=== PATIENT | female | born 1995 | race Caucasian/White ===

== ENCOUNTER 2023-10-26 11:11 | Inpatient (IN) | payer BC ==
[~2023-10-26 11:11] MED LIST: CEPHALEXIN500 MG PO; IMODIUM MULTI-1 EACH PO; ORTHO EVRA PAT1 EACH; ZOFRAN ODT4 MG PO
[2023-10-26 11:41] LABS: HEMOGLOBIN 12.2 g/dL (12.0-18.0); MCHC 32.9 g/dl (30-36); RBC 4.68 M/ul (4.3-5.7)
[2023-10-26 11:54] LABS: CREATININE, RANDOM URINE 53.38 mg/dL (NOT ESTABLISHED); PROTEIN/CREATININE RATIO 0.29 mg/mg (0.010-0.107)
[2023-10-26 11:58] LABS: CREATININE, SERUM 0.65 mg/dL (0.55-1.02)
[2023-10-26] MEDS ORDERED: ACETAMINOPHEN 500 MG TAB PO ONE (12:45)
[2023-10-26] MEDS ORDERED: LACTATED RINGER'S 1,000 ML IV SCH ×2 (12:45→19:39)
[2023-10-26 13:12] LABS: AMPHETAMINES, URINE NEGATIVE (NEGATIVE); BARBITURATES, URINE NEGATIVE (NEGATIVE); BENZODIAZEPINE, URINE NEGATIVE (NEGATIVE); BUPRENORPHINE, URINE NEGATIVE (NEGATIVE); CANNABINOID, URINE NEGATIVE (NEGATIVE); COCAINE, URINE NEGATIVE (NEGATIVE); ECSTASY, URINE NEGATIVE (NEGATIVE); FENTANYL, URINE NEGATIVE (NEGATIVE); METHADONE, URINE NEGATIVE (NEGATIVE); OPIATES, URINE NEGATIVE (NEGATIVE); OXYCODONE, URINE NEGATIVE (NEGATIVE); PHENCYCLIDINE, URINE NEGATIVE (NEGATIVE)
[2023-10-26 13:16] LABS: ABO A; ANTIBODY SCREEN NEGATIVE; RH POSITIVE
[2023-10-26 17:20] VITALS: BP 124/74
[2023-10-26] MEDS ORDERED: CEFAZOLIN SODIUM 3 GM/30 ML SYR IV SCH (17:23)
[2023-10-26] MEDS ORDERED: SOD+POT BICARB/CITRIC ACID 2 EA TABLET.EFF PO ONE (17:30)
[2023-10-26] MEDS ORDERED: LIDOCAINE 2% VISCOUS 6 ML SYR TOP ONE ×2 (17:30→19:45)
[2023-10-26] MEDS ORDERED: LACTATED RINGER'S 1,000 ML IV PRN (17:30)
[2023-10-26] MEDS ORDERED: BUPIVACAINE 0.75% IN DEXTROSE 2 ML AMP ONE (18:18)
[2023-10-26] MEDS ORDERED: MORPHINE SULFATE 1 MG/ML VIAL ONE (18:18)
[2023-10-26] MEDS ORDERED: LIDOCAINE HCL 2% 5 ML SDV ONE (18:19)
[2023-10-26] MEDS ORDERED: ondansetron HCL 4 MG/2 ML VIAL ONE (18:23)
[2023-10-26] MEDS ORDERED: PHENYLEPHRINE HCL 10 MG/ML VIAL ONE (18:36)
[2023-10-26] MEDS ORDERED: SODIUM CHLORIDE 0.9% 20 ML IV ONE (18:36)
[2023-10-26] MEDS ORDERED: OXYTOCIN 10 UNITS/ML VIAL ONE (18:48)
[2023-10-26] MEDS ORDERED: SODIUM CHLORIDE 0.9% 40 ML IV ONE (18:57)
[2023-10-26] MEDS ORDERED: Ropivacaine HCl 0.5% 30 ML VIAL ONE (18:57)
[2023-10-26] MEDS ORDERED: dexmedeTOMIDine HCl 200 MCG/2 ML VIAL ONE (18:57)
[2023-10-26] MEDS ORDERED: DEXAMETHASONE SOD PHOS 4 MG/ML VIAL ONE (18:57)
[2023-10-26] MEDS ORDERED: KETOROLAC TROMETHAMINE 30 MG/ML VIAL IV PRN (19:15)
[2023-10-26] MEDS ORDERED: NALOXONE HCL 0.4 MG SYR IV PRN (19:15)
[2023-10-26] MEDS ORDERED: diphenhydrAMINE HCL 50 MG/ML VIAL IV PRN (19:15)
[2023-10-26] MEDS ORDERED: ondansetron HCL 4 MG/2 ML VIAL IV PRN ×2 (19:15→19:45)
[2023-10-26] MEDS ORDERED: PROCHLORPERAZINE EDISYLATE 10 MG/2 ML VIAL IV PRN ×2 (19:15→19:45)
[2023-10-26] MEDS ORDERED: HYDROmorphone HCL 1 MG/ML SYR IV PRN (19:15)
[2023-10-26] MEDS ORDERED: ACETAMINOPHEN 500 MG TAB PO SCH (19:45)
[2023-10-26] MEDS ORDERED: METOCLOPRAMIDE HCL 10 MG/2 ML SDV IV PRN (19:45)
[2023-10-26] MEDS ORDERED: PROMETHAZINE HCL 25 MG TAB PO PRN (19:45)
[2023-10-26] MEDS ORDERED: bisacodyL 10 MG SUPP PR PRN (19:45)
[2023-10-26] MEDS ORDERED: PROMETHAZINE HCL 25 MG SUPP PR PRN (19:45)
[2023-10-26] MEDS ORDERED: OXYTOCIN/0.9 % SODIUM CHLORIDE 500 ML IV SCH ×2 (19:45→22:00)
[2023-10-26] MEDS ORDERED: HEParin SOD (PORCINE) 5,000 UNIT/0.5 ML SYR SUB-Q SCH (19:45)
[2023-10-26] MEDS ORDERED: OXYCODONE HCL 5 MG TAB PO PRN (19:45)
--- NOTE | 2023-10-26 19:55 | NUR ---
10/26/231954 Zamzam Matute 1940- PT ARRIVES TO [facility] ROOM [facility]101 ALERT AND ORIENTED. RESP EVEN AND UNLABORED. OXYGEN SAT HIHG 90'S ON RA. 18G IV TO LEFT HAND INFUSING L WITH PITOCIN WNL. PT REPORTS NO PAIN TO THE SITE. 1945- PT SAT UP SLIGHTLY IN THE BED. PT REPORTS NO DIZZINESS, NAUSEA, OR PAIN. INFANT AT THE BEDSIDE WITH THE FATHER. 1951- PT SAT UP MORE IN BED. DENIES NAUSEA, DIZZINESS, OR PAIN. RESP EVEN AND UNLABORED. OXYGEN SAT HIGH 90'S ON RA.
[2023-10-26] MEDS ORDERED: KETOROLAC TROMETHAMINE 30 MG/ML VIAL IV SCH (20:00)
[2023-10-26 20:04] VITALS: BP 109/69
[2023-10-26] MEDS ORDERED: SIMETHICONE 125 MG TABLET CHEWABLE PO SCH (21:00)
[2023-10-26] MEDS ORDERED: SENNOSIDES/DOCUSATE 1 EA TAB PO SCH (21:00)
--- NOTE | 2023-10-26 21:40 | PR ---
[facility] [address] [facility] [place] [address] Signed PP Progress Notes Datetime Report Generated by CPRosalind: 10/26/2023 21:40 SUBJECTIVE: [id number] Pain: Within Normal Limits Vital Signs: [id number] Vital Signs: Reviewed Notable Details: mild htn Exam Comments: Fundus firm but above umbilicus. Clots removed digitally but difficult as cervix only 1 cm. Much firmer after evacuation of clots. IMPRESSION/PLAN/PROCEDURES: [id number] Other Impression: pp bleeding Other Plans: PO Cytotec/IV Zofran/PO Lomotil Progress Notes: Some increased bleeding and some clots evacuated from the uterus. Will add Cytotec and increase IV pit and continue close observation. She may require suction D_C if further issues with bleeding. Signing Physician: Evelyn Munguia MD Copies: ~ *Electronically Signed* 10/26/232139 EVELYN MUNGUIA MD PATIENT NAME: KEVIN MZEA PROGRESS NOTE DATE OF : [birth year] PHYSICIAN: EVELYN MUNGUIA MD RPT #: [id number] REPORT IS CONFIDENTIAL AND NOT TO BE RELEASED WITHOUT AUTHORIZATION
--- NOTE | 2023-10-26 21:56 | OR ---
[facility] [address] [place], [place] [address] Signed DATE OF OPERATION: 10/26/2023 SURGEON: Evelyn Munguia MD PRINCIPAL IOS DEVELOPER: ABRAN Pearson, PREOPERATIVE DIAGNOSIS: Term , preeclampsia without severe features, poor antepartum testing, macrosomia. POSTOPERATIVE DIAGNOSIS: Term , preeclampsia without severe features, poor antepartum testing, macrosomia. Delivered. PROCEDURE: Primary section with low segment transverse uterine incision. ANESTHESIA: Spinal. ESTIMATED BLOOD LOSS: 600 mL. DRAINS: Garcia catheter. INDICATIONS AND FINDINGS: The patient is a 27-year-old female, 2, para 0, SAB 1, who was admitted at 37 and 6/7th weeks with finding suggestive preeclampsia as well as poor antepartum testing. The patient has also had a macrosomic infant and the plan had been for a primary section next week. However, because of these findings, the decision was made to proceed sooner. She was delivered of a little girl via lower segment transverse uterine incision from the ROP position with Apgars of 8 and 9 and a weight of 10 pounds 15 ounces. Uterus, tubes, ovaries, and placenta were otherwise normal. DESCRIPTION OF PROCEDURE: The patient was prepped and draped in the supine position. A Pfannenstiel skin incision was made and carried down through the fascia. The incision was extended laterally. The inferior and superior fascial flaps were then created. The muscles were bluntly divided Electronically Signed By: EVELYN MUNGUIA MD 10/26/23 2156 PATIENT NAME: KEVIN MEZA OPERATIVE REPORT DATE OF : [birth year] REPORT #: [id number] PHYSICIAN: EVELYN MUNGUIA MD PCP: NO PRIMARY CARE PHYSICIAN REPORT IS CONFIDENTIAL AND NOT TO BE RELEASED WITHOUT AUTHORIZATION [facility] [address] [place], [place] [address] Signed and the peritoneum opened bluntly and the incision extended bluntly. The Florentin retractor was placed. The uterine incision was made at the upper aspect of the peritoneal reflection. The incision was extended bluntly. Clear fluid was noted on rupturing the bag of dee. The baby was delivered with the above findings and handed off to the pediatric staff in attendance. The placenta was expressed and the uterus explored with a lap tape assuring no remaining fragments. The edges of the incision were identified. The uterus was closed in 2 layers using 0 Monocryl. The first layer was a running locking stitch and the 2nd was a vertical imbricating stitch. The abdomen was irrigated, inspected and bleeding points on the peritoneum were controlled with cautery. The incision was hemostatic and the Florentin retractor was removed. The peritoneum was identified and closed with a running suture of 3-0 Vicryl. The muscles were brought together with interrupted sutures of 0 Vicryl. The fascia was closed from each angle to the midline with a running suture of 0 Vicryl. The subcu space was irrigated and bleeding points controlled with cautery. The deep space was closed with interrupted sutures of 3-0 Vicryl. The skin was closed with low. All sponge and needle counts were correct. She tolerated procedure well and was taken to the recovery room in good condition. Evelyn Munguia MD PJW/MODL /[id number] Copies: ~ Electronically Signed By: EVELYN MUNGUIA MD 10/26/23 2156 PATIENT NAME: KEVNI MEZA OPERATIVE REPORT DATE OF : [birth year] REPORT #: [id number] PHYSICIAN: EVELYN MUNGUIA MD PCP: NO PRIMARY CARE PHYSICIAN REPORT IS CONFIDENTIAL AND NOT TO BE RELEASED WITHOUT AUTHORIZATION
[2023-10-26] MEDS ORDERED: ondansetron HCL 4 MG/2 ML VIAL IV ONE (22:00)
[2023-10-26] MEDS ORDERED: DIPHENOXYLATE/ATROPINE 1 EA TAB PO ONE (22:00)
[2023-10-26] MEDS ORDERED: miSOPROStoL 200 MCG TAB PO ONE (22:00)
[2023-10-26] MEDS ORDERED: OXYTOCIN/0.9 % SODIUM CHLORIDE 500 ML IV ONE ×2 (22:05→22:15)
[2023-10-26] MEDS ORDERED: IBUPROFEN 800 MG TAB PO SCH (23:00)
[2023-10-27] MEDS ORDERED: ACETAMINOPHEN 500 MG TAB PO SCH (03:00)
[2023-10-27] MEDS ORDERED: LACTATED RINGER'S 1,000 ML IV SCH (05:00)
[2023-10-27 05:32] LABS: HEMATOCRIT 32.7 % (35.0-50.0); HEMOGLOBIN 10.8 g/dL (12.0-18.0); MCH 25.9 (27-36); MCHC 32.9 g/dl (30-36); MCV 78.7 fl (81-99); RBC 4.16 M/ul (4.3-5.7)
--- NOTE | 2023-10-27 08:33 | PR ---
[facility] [address] [facility] [place], [place] [address] Signed PP Progress Notes Datetime Report Generated by CPRosalind: 10/27/2023 08:33 SUBJECTIVE: [id number] Pain: Within Normal Limits Nausea/Vomiting: Denies Flatus: No Vital Signs: [id number] Vital Signs: Reviewed; Within Normal Limits Notable Details: mild htn Cardiovascular: Normal Respiratory: Normal Abdomen/Uterus: Abnormal Lochia: Normal Vulva/Perineum: Not Done Breasts: Not Done CVA Tenderness: Not Done Extremities: Normal Incision: Normal Progress: Normal Exam Comments: Abdomen with active BS. Fundus firm, NT @ U-1. H/H 10.8/32.7, WBC 17.2, plat 148k IMPRESSION/PLAN/PROCEDURES: [id number] Impression: Normal Progression Other Impression: pp bleeding Other Plans: increase ambulation, shower Progress Notes: Doing well. Bleeding has bee doing well since episode last pm. Signing Physician: Evelyn Munguia MD Copies: ~ *Electronically Signed* 10/27/23 0833 EVELYN MUNGUIA MD PATIENT NAME: KEVIN MEZA PROGRESS NOTE DATE OF : [birth year] PHYSICIAN: EVELYN MUNGUIA MD RPT #: [id number] REPORT IS CONFIDENTIAL AND NOT TO BE RELEASED WITHOUT AUTHORIZATION
[2023-10-27 11:02] LABS: HEMATOCRIT 33.3 % (35.0-50.0); HEMOGLOBIN 10.8 g/dL (12.0-18.0); MCH 25.8 (27-36); MCHC 32.3 g/dl (30-36); MCV 79.8 fl (81-99); RBC 4.17 M/ul (4.3-5.7); RDW 17.1 (10.5-15.0)
[2023-10-27 11:16] LABS: INR 1.01 (0.80-1.30); PROTIME 12.9 Sec (11.2-14.2)
[2023-10-27 11:20] LABS: PARTIAL THROMBOPLASTIN TIME 27.6 Sec (22.9-41.3)
--- NOTE | 2023-10-27 13:11 | NUR ---
VISITED PT DURING ROUNDS. DETAILED CHART NOTE RECORDED IN [facility] CHARTING SYSTEM.
[2023-10-27] MEDS ORDERED: ondansetron HCL 4 MG/2 ML VIAL IV PRN (19:15)
--- NOTE | 2023-10-28 07:34 | PR ---
[facility] [address] [facility] [place], [place] [address] Signed PP Progress Notes Datetime Report Generated by CPN: 10/28/2023 07:34 SUBJECTIVE: [id number] Pain: Within Normal Limits Nausea/Vomiting: Denies Flatus: Yes Bowel Movement: No Vital Signs: [id number] Vital Signs: Reviewed; Within Normal Limits Notable Details: mild htn Cardiovascular: Normal Respiratory: Normal Abdomen/Uterus: Normal Lochia: Normal Vulva/Perineum: Not Done Breasts: Not Done CVA Tenderness: Normal Extremities: Normal Incision: Normal Progress: Normal Exam Comments: Fundus firm U-2 nontender. Incision healing well w/ low in place IMPRESSION/PLAN/PROCEDURES: [id number] Impression: Normal Progression Other Impression: pp bleeding Plan: Continue Present Management Other Plans: increase ambulation, shower Progress Notes: Pt seen and examined. Doing well. Ambulating, voiding, and tolerating full diet. Pain and lochia minimal. . No concerns. Anticipate d/c home tomorrow. Signing Physician: Esa Pearson DO Copies: ~ *Electronically Signed* 10/28/23 0734 ESA PEARSON (ABRAN) DO PATIENT NAME: KEVIN MEZA PROGRESS NOTE DATE OF : [birth year] PHYSICIAN: ESA PEARSON) DO RPT #: [id number] REPORT IS CONFIDENTIAL AND NOT TO BE RELEASED WITHOUT AUTHORIZATION
--- NOTE | 2023-10-29 07:40 | PR ---
[facility] [address] [place], [place] [address] Signed PP Progress Notes Datetime Report Generated by CPN: 10/29/2023 07:40 SUBJECTIVE: [id number] Pain: Within Normal Limits Nausea/Vomiting: Denies Flatus: Yes Bowel Movement: No Vital Signs: [id number] Vital Signs: Reviewed; Within Normal Limits Notable Details: mild htn Cardiovascular: Normal Respiratory: Normal Abdomen/Uterus: Normal Lochia: Normal Vulva/Perineum: Not Done Breasts: Not Done CVA Tenderness: Normal Extremities: Normal Incision: Normal Progress: Normal Exam Comments: Fundus firm U-2 nontender. Incision healing well w/ low in place IMPRESSION/PLAN/PROCEDURES: [id number] Impression: Normal Progression Other Impression: pp bleeding Plan: Discharge Other Plans: D/C to border status Progress Notes: Pt seen and examined. Doing well. Ambulating, voiding, and tolerating full diet. Pain and lochia minimal. . No fevers/chills. Baby w/ some wheezing last night and peds not planning d/c home today. Mom to border status. Reviewed d/c instructions. Undecided on pp contraception. All questions answered. Signing Physician: Esa Pearson DO Copies: ~ *Electronically Signed* 10/29/23 1071 ESA PEARSON (ABRAN) DO PATIENT NAME: KEVIN MEZA PROGRESS NOTE DATE OF : [birth year] PHYSICIAN: ESA PEARSON (JD) DO RPT #: [id number] REPORT IS CONFIDENTIAL AND NOT TO BE RELEASED WITHOUT AUTHORIZATION
== END 2023-10-29 13:45 | disposition home or self-care (01) | DRG 787 ==
LOC: FBCO 11:11 → FBC 17:19
PROVIDERS: ADMIT Obstetrics & Gynecology; ATTEND Obstetrics & Gynecology
PROC: 10D00Z1 Extraction of Products of Conception, Low, Open Approach (ICD-10-PCS; principal; 2023-10-26 18:28)
DX: O36.63X0 Maternal care for excessive fetal growth, third trimester, not applicable or unspecified (principal); O72.1 Other immediate postpartum hemorrhage; O14.04 Mild to moderate pre-eclampsia, complicating childbirth; Z3A.37 37 weeks gestation of pregnancy; Z37.0 Single live birth
CPT/HCPCS: 01961; 36415; 76942; 80307; 82565; 82570; 84156; 84450; 84520; 84550; 85027; 85384; 85610; 85730; 86850; 86900; 86901; A9270; J0690; J1100; J1644; J2001; J2274; J2371; J2405; J2590; J2795; J7121